=== PATIENT | female | born 2000 | race Caucasian/White ===

== ENCOUNTER 2020-09-20 18:29 | Emergency (ER) | payer BC, OTHER ==
[2020-09-20] MEDS ORDERED: Ondansetron 4 MG/2 ML SDV IVPUSH ONE (19:22)
--- NOTE | 2020-09-20 19:26 | EDM.PDOC ---
ED HPI GENERAL MEDICAL PROBLEM - General Chief Complaint: Genitourinary Problem Stated Complaint: POSS UTI Time Seen by Provider: 09/20/20 19:09 Source of Information: Reports: Patient, Family History Limitations: Reports: No Limitations - History of Present Illness INITIAL COMMENTS - FREE TEXT/NARRATIVE: This is a 20-year-old female. For the last several days she has been having back pain that she just thought was her regular back pain so she ignored it. Then over the last couple days she has developed cloudy foul-smelling urine having some chills and fatigue and today nausea and vomiting. She says she has a history of urinary tract infections and kidneys infections. When she had the urinary symptoms she just thought they would go away but they did not. She states she is been able to drink fluids despite the nausea and the vomiting. She does not know how high her fever has been but she has had chills. Back Pain Score (Numeric/FACES): 5 - Related Data Allergies Allergy/AdvReac Type Severity Reaction Status Date / Time No Known Allergies Allergy Verified 09/20/20 18:54 Home Meds: Home Meds . [No Known Home Meds] 09/20/20 [History] Past Medical History - Past Health History Medical/Surgical History: Denies Medical/Surgical History Social & Family History - Tobacco Use Tobacco Use Status *Q: Never Tobacco User Second Hand Smoke Exposure: No - Recreational Drug Use Recreational Drug Use: No ED ROS GENERAL - Review of Systems Review Of Systems: See Below Constitutional: Reports: Chills, Malaise. Denies: Fever HEENT: Reports: No Symptoms Respiratory: Denies: Shortness of Breath, Cough Cardiovascular: Reports: No Symptoms Endocrine: Reports: No Symptoms GI/Abdominal: Reports: Abdominal Pain, Nausea, Vomiting : Reports: Dysuria, Other (As per HPI). Denies: Discharge Musculoskeletal: Reports: Back Pain Skin: Reports: No Symptoms Neurological: Reports: No Symptoms Psychiatric: Reports: No Symptoms Hematologic/Lymphatic: Reports: No Symptoms ED EXAM, RENAL/ - Physical Exam Exam: See Below Exam Limited By: No Limitations General Appearance: Alert, WD/WN, No Apparent Distress Eye Exam: Bilateral Eye: Normal Inspection Ears: Normal External Exam Nose: Normal Inspection Throat/Mouth: Normal Lips, Normal Voice, No Airway Compromise Head: Normocephalic Neck: Supple Respiratory/Chest: No Respiratory Distress, Lungs Clear, Normal Breath Sounds Cardiovascular: Regular Rate, Rhythm, No Murmur GI/Abdominal: Soft, Other (Mildly tender left upper quadrant area on palpation, bowel sounds are quiet. There is no guarding there is no rebound.) Back Exam: Normal Inspection, Full Range of Motion, CVA Tenderness (L). No: CVA Tenderness (R) Extremities: Normal Inspection, Normal Range of Motion Neurological: Alert, Oriented Psychiatric: Normal Affect, Normal Mood Skin Exam: Warm, Dry Course - Vital Signs Last Recorded V/S: Last Vital Signs Temp 97 F 09/20/20 18:53 Pulse 118 H 09/20/20 18:53 Resp 16 09/20/20 18:53 BP 120/82 09/20/20 18:53 Pulse Ox 98 09/20/20 18:53 - Orders/Labs/Meds Orders: Active Orders 24 hr Category Date Time Status Sodium Chloride 0.9% [Normal Saline] 1,000 ml Med 09/20/20 19:30 Active IV ASDIRECTED Medication Orders Sodium Chloride (Normal Saline) 1,000 mls @ 1,000 mls/hr IV ASDIRECTED JENNIFER Last Admin: 09/20/20 19:46 Dose: 1,000 mls/hr Documented by: HANNAH Labs: Laboratory Tests 09/20/20 09/20/20 09/20/20 Range/Units 19:07 19:35 19:35 WBC 10.81 H (3.98-10.04) K/mm3 RBC 4.73 (3.98-5.22) M/mm3 Hgb 14.5 (11.2-15.7) gm/dl Hct 44.4 (34.1-44.9) % MCV 93.9 (79.4-94.8) fl MCH 30.7 (25.6-32.2) pg MCHC 32.7 (32.2-35.5) g/dl RDW Std Deviation 42.3 (36.4-46.3) fL Plt Count 191 (182-369) K/mm3 MPV 10.2 (9.4-12.3) fl Neut % (Auto) 87.6 H (34.0-71.1) % Lymph % (Auto) 4.4 L (19.3-51.7) % [place] % (Auto) 7.5 (4.7-12.5) % Eos % (Auto) 0.2 L (0.7-5.8) Baso % (Auto) 0.1 (0.1-1.2) % Neut # (Auto) 9.47 H (1.56-6.13) K/mm3 Lymph # (Auto) 0.48 L (1.18-3.74) K/mm3 [place] # (Auto) 0.81 H (0.24-0.36) K/mm3 Eos # (Auto) 0.02 L (0.04-0.36) K/mm3 Baso # (Auto) 0.01 (0.01-0.08) K/mm3 Manual Slide Review Abnormal smear Sodium 140 (136-145) mEq/L Potassium 3.8 (3.5-5.1) mEq/L Chloride 102 (98-107) mEq/L Carbon Dioxide 25 (21-32) mEq/L Anion Gap 16.8 H (5-15) BUN 16 (7-18) mg/dL Creatinine 0.8 (0.55-1.02) mg/dL Est Cr Clr Drug Dosing 77.03 mL/min Estimated GFR (MDRD) > 60 (>60) mL/min BUN/Creatinine Ratio 20.0 H (14-18) Glucose 87 (74-106) mg/dL Calcium 8.9 (8.5-10.1) mg/dL Total Bilirubin 1.0 (0.2-1.0) mg/dL AST 15 (15-37) U/L ALT 22 (14-59) U/L Alkaline Phosphatase 49 (46-116) U/L Total Protein 8.3 H (6.4-8.2) g/dl Albumin 4.1 (3.4-5.0) g/dl Globulin 4.2 gm/dL Albumin/Globulin Ratio 1.0 (1-2) HCG, Qual (NEGATIVE) Urine Color Yellow (Yellow) Urine Appearance Clear (Clear) Urine pH 5.0 (5.0-8.0) Ur Specific [place] > or = 1.030 (1.005-1.030) Urine Protein Trace H (Negative) Urine Glucose (UA) Negative (Negative) Urine Ketones 3+ H (Negative) Urine Occult Blood 2+ H (Negative) Urine Nitrite Negative (Negative) Urine Bilirubin 1+ H (Negative) Urine Urobilinogen 0.2 (0.2-1.0) Ur Leukocyte Esterase Negative (Negative) Urine RBC 0-5 (0-5) /hpf Urine WBC 0-5 (0-5) /hpf Ur Squamous Epith Cells 5-10 H (0-5) /hpf Urine Bacteria Few (FEW) /hpf Urine Mucus Many H (FEW) /hpf 09/20/20 Range/Units 19:35 WBC (3.98-10.04) K/mm3 RBC (3.98-5.22) M/mm3 Hgb (11.2-15.7) gm/dl Hct (34.1-44.9) % MCV (79.4-94.8) fl MCH (25.6-32.2) pg MCHC (32.2-35.5) g/dl RDW Std Deviation (36.4-46.3) fL Plt Count (182-369) K/mm3 MPV (9.4-12.3) fl Neut % (Auto) (34.0-71.1) % Lymph % (Auto) (19.3-51.7) % [place] % (Auto) (4.7-12.5) % Eos % (Auto) (0.7-5.8) Baso % (Auto) (0.1-1.2) % Neut # (Auto) (1.56-6.13) K/mm3 Lymph # (Auto) (1.18-3.74) K/mm3 [place] # (Auto) (0.24-0.36) K/mm3 Eos # (Auto) (0.04-0.36) K/mm3 Baso # (Auto) (0.01-0.08) K/mm3 Manual Slide Review Sodium (136-145) mEq/L Potassium (3.5-5.1) mEq/L Chloride (98-107) mEq/L Carbon Dioxide (21-32) mEq/L Anion Gap (5-15) BUN (7-18) mg/dL Creatinine (0.55-1.02) mg/dL Est Cr Clr Drug Dosing mL/min Estimated GFR (MDRD) (>60) mL/min BUN/Creatinine Ratio (14-18) Glucose (74-106) mg/dL Calcium (8.5-10.1) mg/dL Total Bilirubin (0.2-1.0) mg/dL AST (15-37) U/L ALT (14-59) U/L Alkaline Phosphatase (46-116) U/L Total Protein (6.4-8.2) g/dl Albumin (3.4-5.0) g/dl Globulin gm/dL Albumin/Globulin Ratio (1-2) HCG, Qual Negative (NEGATIVE) Urine Color (Yellow) Urine Appearance (Clear) Urine pH (5.0-8.0) Ur Specific [place] (1.005-1.030) Urine Protein (Negative) Urine Glucose (UA) (Negative) Urine Ketones (Negative) Urine Occult Blood (Negative) Urine Nitrite (Negative) Urine Bilirubin (Negative) Urine Urobilinogen (0.2-1.0) Ur Leukocyte Esterase (Negative) Urine RBC (0-5) /hpf Urine WBC (0-5) /hpf Ur Squamous Epith Cells (0-5) /hpf Urine Bacteria (FEW) /hpf Urine Mucus (FEW) /hpf Meds: Medications Generic Name Dose Route Start Last Admin Trade Name Freq PRN Reason Stop Dose Admin Sodium Chloride 1,000 mls @ 1,000 mls/hr 09/20/20 19:30 09/20/20 19:46 Normal Saline IV 1,000 mls/hr ASDIRECTED JENNIFER Administration Discontinued Medications Generic Name Dose Route Start Last Admin Trade Name Freq PRN Reason Stop Dose Admin Ondansetron HCl 4 mg 09/20/20 19:22 09/20/20 19:46 Ondansetron 4 Mg/2 Ml Sdv IVPUSH 09/20/20 19:23 4 mg ONETIME ONE Administration - Re-Assessments/Exams Free Text/Narrative Re-Assessment/Exam: 09/20/20 20:53 Spoke to the patient regarding her lab results her CBC appears to be normal with minimally elevated white count, her CMP is normal she is not . Urine is very concentrated but there is no nitrates there is no leukocyte esterase and there is few if any bacteria. She is 3+ ketones positive suggesting dehydration not eating enough. I spoke to her regarding her dehydration and that concentrated urine can cause burning and cloudiness and sometimes a foul smell to the urine but she does not really have what I consider be a urinary tract infection at this time. Encouraged her to drink and according to her weight she should be drinking at least 6 full 8 ounce glasses of water a day. Departure - Departure Time of Disposition: 20:55 Disposition: Home, Self-Care 01 Condition: Good Clinical Impression: Dehydration - Discharge Information *PRESCRIPTION DRUG MONITORING PROGRAM REVIEWED*: Not Applicable *COPY OF PRESCRIPTION DRUG MONITORING REPORT IN PATIENT SUKHJINDER: Not Applicable Instructions: Dehydration, Adult, [id number], Rehydration, Adult Referrals: PCP,None [Primary Care Provider] - Forms: ED Department Discharge Additional Instructions: Drink at least 6 full 8 ounce glasses of water a day, you need to hydrate yourself so your urine is not so thick, continue to monitor if you develop increasing symptoms especially with a documented fever recheck with your family doctor or return to the ER Sepsis Event Note (ED) - Evaluation Sepsis Screening Result: No Definite Risk - Focused Exam Vital Signs: Vital Signs Temp Pulse Resp BP Pulse Ox 09/20/20 18:53 97 F 118 H 16 120/82 98 - My Orders Last 24 Hours: My Active Orders 09/20/20 19:30 Sodium Chloride 0.9% [Normal Saline] 1,000 ml IV ASDIRECTED - Assessment/Plan Last 24 Hours: My Active Orders 09/20/20 19:30 Sodium Chloride 0.9% [Normal Saline] 1,000 ml IV ASDIRECTED
[2020-09-20] MEDS ORDERED: Sodium Chloride 0.9% 1,000 ML IV SCH (19:30)
== END 2020-09-20 21:10 | disposition home or self-care (01) ==
LOC: JD.ED 18:29
DX: E86.0 Dehydration (principal)
CPT/HCPCS: 36415; 80053; 81001; 84703; 85025; 96374; 99284; J2405; J7030; 99283

== ENCOUNTER 2022-06-11 08:09 | Inpatient (IN) | payer SELFPAY ==
[2022-06-11] MEDS ORDERED: Nalbuphine HCl 10 MG/ 1ML Amp IVPUSH PRN (11:47)
[2022-06-11] MEDS ORDERED: Oxytocin/Lactated Ringers 10 UNIT/1,000 ML BAG IV SCH ×2 (12:00)
[2022-06-11] MEDS ORDERED: Lactated Ringers 1,000 ML ONE (12:04)
[2022-06-11] MEDS: Lactated Ringers 1,000 ML IV SCH ×4 (12:11→22:54)
[2022-06-11] MEDS ORDERED: Ampicillin 2 GM in Sodium Chloride 0.9% 100 ML IV ONE (12:30)
[2022-06-11] MEDS ORDERED: ePHEDrine 50 MG/ML SDV IVPUSH PRN (14:17)
[2022-06-11] MEDS ORDERED: diphenhydrAMINE 50 MG/ML SDV IVPUSH PRN (14:17)
[2022-06-11] MEDS ORDERED: fentaNYL 100 MCG/2 ML SDV EPIDUR PRN (14:17)
[2022-06-11] MEDS: Bupivacaine/fentaNYL/NS 100 ML Bag EPIDUR PRN (14:41)
[2022-06-11] MEDS ORDERED: Dexmedetomidine 200 MCG/2 ML SDV ONE (15:02)
[2022-06-11] MEDS: Ampicillin 1 GM in Sodium Chloride 0.9% 100 ML IV SCH ×2 (16:32→21:25)
[2022-06-11] MEDS: Ondansetron 4 MG/2 ML SDV IVPUSH PRN (21:23)
[2022-06-12] MEDS ORDERED: Phenylephrine HCl In 0.9% NaCl 1 MG/10 ML Vial ONE
[2022-06-12] MEDS ORDERED: Lidocaine 1% 10 ML MDV ONE
[2022-06-12] MEDS: Bupivacaine/fentaNYL/NS 100 ML Bag EPIDUR PRN (00:28)
[2022-06-12] MEDS: Ampicillin 1 GM in Sodium Chloride 0.9% 100 ML IV SCH ×2 (01:47→09:51)
[2022-06-12] MEDS: Ondansetron 4 MG/2 ML SDV IVPUSH PRN (03:26)
[2022-06-12] MEDS ORDERED: Acetaminophen 325 MG Tab PO PRN (04:50)
[2022-06-12] MEDS ORDERED: Benzocaine/Menthol 20%-0.5% Spray 78 GM Cannister TOP PRN (04:50)
[2022-06-12] MEDS ORDERED: Docusate Sodium 100 MG Cap PO PRN (04:50)
[2022-06-12] MEDS ORDERED: Witch Hazel Medicated Pads 40/Jar TOP PRN (04:50)
[2022-06-12] MEDS: Prenatal Multivitamin with Calcium/Folic Acid/Iron Tab PO SCH (08:08)
[2022-06-12] MEDS: Ibuprofen 600 MG Tab PO PRN ×2 (08:08→20:26)
[2022-06-13] MEDS: Prenatal Multivitamin with Calcium/Folic Acid/Iron Tab PO SCH (08:28)
[2022-06-13] MEDS: Ibuprofen 600 MG Tab PO PRN (20:04)
== END 2022-06-13 21:10 | disposition home or self-care (01) | DRG 807 ==
LOC: JD.OBCHECK 08:09 → JD.OB 08:14 → JD.OBCHECK 15:33 → JD.OB 15:33 → OBSVTOIN 06-12 04:26 → JD.MS 06-12 04:27 → JD.OB 06-12 12:15
PROVIDERS: ADMIT Obstetrics & Gynecology; ATTEND Obstetrics & Gynecology
PROC: 10E0XZZ Delivery of Products of Conception, External Approach (ICD-10-PCS; principal; 2022-06-12)
PROC: 10907ZC Drainage of Amniotic Fluid, Therapeutic from Products of Conception, Via Natural or Artificial Opening (ICD-10-PCS; 2022-06-12)
PROC: 3E0R3BZ Introduction of Anesthetic Agent into Spinal Canal, Percutaneous Approach (ICD-10-PCS; 2022-06-12)
PROC: 00HU33Z Insertion of Infusion Device into Spinal Canal, Percutaneous Approach (ICD-10-PCS; 2022-06-12)
DX: O98.32 Other infections with a predominantly sexual mode of transmission complicating childbirth (principal); Z37.0 Single live birth; A60.09 Herpesviral infection of other urogenital tract; Z3A.39 39 weeks gestation of pregnancy
CPT/HCPCS: 36415; 51702; 59025; 59409; 80306; 84112; 85025; 86592; 86850; 86900; 86901; 87653; A9270-GY; J0290; J2405; J2590; J3010; J7120

== ENCOUNTER 2023-06-26 03:53 | Inpatient (IN) | payer SELFPAY ==
[~2023-06-26 03:53] MED LIST: Bupivacaine 0.25% 10 ML SDV ONE; Lidocaine 1% 10 ML MDV ONE
[2023-06-26] MEDS ORDERED: Nalbuphine HCl 10 MG/ 1ML Amp IVPUSH PRN (04:37)
[2023-06-26] MEDS ORDERED: Sodium Chloride 0.9% 10 ML Syringe FLUSH PRN (04:37)
[2023-06-26] MEDS ORDERED: Ampicillin 2 GM in Sodium Chloride 0.9% 100 ML IV ONE (04:37)
[2023-06-26] MEDS ORDERED: Lidocaine 1% 50 ML MDV INJECT PRN (04:37)
[2023-06-26] MEDS ORDERED: Oxytocin/Lactated Ringers 30 UNIT/500 ML BAG IV SCH (04:45)
[2023-06-26] MEDS: Lactated Ringers 1,000 ML IV SCH ×4 (04:50→09:35)
[2023-06-26 04:58] LABS: BASOPHILS ABSOLUTE AUTO 0.1 K/mm3 (0.0-0.2); BASOPHILS PERCENT AUTO 0.3 % (0.0-1.0); EOSINOPHILS ABSOLUTE AUTO 0.1 K/mm3 (0.0-0.4); EOSINOPHILS PERCENT AUTO 0.5 % (0.0-6.0); HEMATOCRIT 29.7 % (37.0-47.0); HEMOGLOBIN 9.5 gm/dl (12.0-16.0); IMMATURE GRAN ABSOLUTE AUTO 0.11 K/mm3 (0.00-0.05); IMMATURE GRAN PERCENT AUTO 0.7 % (0.0-0.4); LYMPHOCYTES ABSOLUTE AUTO 3.1 K/mm3 (1.0-4.8); LYMPHOCYTES PERCENT AUTO 20.3 % (24.0-44.0); MEAN CORPUSCULAR HEMOGLOBIN 24.8 pg (28.0-32.0); MEAN CORPUSCULAR VOLUME 77.5 fl (83.0-99.0); MEAN PLATELET VOLUME 10.3 fl (9.4-12.3); MONOCYTES ABSOLUTE AUTO 0.8 K/mm3 (0.0-0.8); MONOCYTES PERCENT AUTO 4.9 % (0.0-8.0); NEUTROPHILS ABSOLUTE AUTO 11.1 K/mm3 (1.8-7.7); NEUTROPHILS PERCENT AUTO 73.3 % (41.0-71.0); PLATELET COUNT,PLT 213 K/mm3 (150-400); RED BLOOD CELL COUNT 3.83 M/mm3 (4.10-5.30); WHITE BLOOD CELL COUNT,WBC 15.16 K/mm3 (3.9-11.3)
[2023-06-26] MEDS ORDERED: fentaNYL 100 MCG/2 ML SDV EPIDUR PRN ×2 (04:59→05:27)
[2023-06-26] MEDS ORDERED: Bupivacaine/fentaNYL/NS 100 ML Bag EPIDUR PRN ×2 (04:59→05:27)
[2023-06-26] MEDS ORDERED: ePHEDrine 50 MG/ML SDV IVPUSH PRN ×2 (04:59→05:27)
[2023-06-26] MEDS ORDERED: diphenhydrAMINE 50 MG/ML SDV IVPUSH PRN ×2 (04:59→05:27)
[2023-06-26] MEDS ORDERED: fentaNYL 100 MCG/2 ML SDV ONE (05:31)
[2023-06-26 05:47] LABS: HEPATITIS C AB NEGATIVE (NEGATIVE); HIV RAPID SCREEN RLFX COMFIRM NEGATIVE (NEGATIVE)
[2023-06-26] MEDS ORDERED: Phenylephrine 1% 10 MG/ML SDV IV PRN (06:27)
[2023-06-26] MEDS: Ondansetron 4 MG/2 ML SDV IVPUSH PRN ×2 (06:45→10:51)
[2023-06-26 07:47] LABS: BARBITURATE SCREEN,URINE NEGATIVE (CUTOFF=200); BENZODIAZEPINES SCREEN,URINE NEGATIVE (CUTOFF=150); BUPRENORPHINE SCREEN,URINE NEGATIVE (CUTOFF=10); METHADONE SCREEN, URINE NEGATIVE (CUTOFF=200); METHAMPHETAMINES SCREEN, URINE NEGATIVE (CUTOFF=500); OXYCODONE SCREEN,URINE NEGATIVE (CUT0FF=100); THC SCREEN,URINE 20 NG/ML NEGATIVE (CUTOFF=50)
[2023-06-26 07:57] LABS: AMPHETAMINES SCREEN, URINE NEGATIVE (CUTOFF=500)
[2023-06-26] MEDS: Ampicillin 1 GM in Sodium Chloride 0.9% 100 ML IV SCH ×2 (08:45→13:24)
[2023-06-26] MEDS ORDERED: Sodium Chloride 0.9% 10 ML Syringe FLUSH SCH (09:00)
[2023-06-26] MEDS ORDERED: Benzocaine/Menthol 20%-0.5% Spray 78 GM Cannister TOP PRN (13:05)
[2023-06-26] MEDS ORDERED: Witch Hazel Medicated Pads 40/Jar TOP PRN (13:05)
[2023-06-26] MEDS ORDERED: Docusate Sodium 100 MG Cap PO PRN (13:05)
[2023-06-26] MEDS ORDERED: Magnesium Hydroxide 400 MG/5 ML Susp 30 ML Cup PO PRN (13:05)
[2023-06-26] MEDS ORDERED: Hydrocortisone Acetate 25 MG Supp RECTAL PRN (13:05)
[2023-06-26] MEDS: Ibuprofen 600 MG Tab PO PRN (14:08)
[2023-06-26] MEDS: Acetaminophen 325 MG Tab PO PRN (21:41)
[2023-06-27] MEDS: Ibuprofen 600 MG Tab PO PRN ×2 (05:24→21:51)
[2023-06-27 07:50] LABS: GROUP B STREP BY PCR NEGATIVE (NEGATIVE)
[2023-06-27] MEDS: Prenatal Multivitamin with Calcium/Folic Acid/Iron Tab PO SCH (09:11)
[2023-06-27] MEDS: Ferrous Sulfate 324 MG Tab.EC PO SCH (09:11)
[2023-06-27 12:46] LABS: HEPATITIS B SURFACE AG NONREACTIVE (NONREACTIVE)
[2023-06-28] MEDS ORDERED: Measles, Mumps & Rubella Vaccine 0.5 ML SDV SUBCUT ONE (07:44)
[2023-06-28] MEDS: Acetaminophen 325 MG Tab PO PRN (09:30)
[2023-06-28] MEDS: Prenatal Multivitamin with Calcium/Folic Acid/Iron Tab PO SCH (09:31)
[2023-06-28] MEDS: Ferrous Sulfate 324 MG Tab.EC PO SCH (09:31)
== END 2023-06-28 11:45 | disposition home or self-care (01) | DRG 807 ==
LOC: JD.OBCHECK 03:53 → JD.OB 03:59 → JD.OBCHECK 04:36 → JD.OB 04:37 → OBSVTOIN 11:30 → JD.OB 11:31
PROVIDERS: ADMIT Obstetrics & Gynecology; ATTEND Obstetrics & Gynecology
PROC: 10E0XZZ Delivery of Products of Conception, External Approach (ICD-10-PCS; principal; 2023-06-26)
PROC: 0KQM0ZZ Repair Perineum Muscle, Open Approach (ICD-10-PCS; 2023-06-26)
PROC: 3E0R3BZ Introduction of Anesthetic Agent into Spinal Canal, Percutaneous Approach (ICD-10-PCS; 2023-06-26)
PROC: 00HU33Z Insertion of Infusion Device into Spinal Canal, Percutaneous Approach (ICD-10-PCS; 2023-06-26)
PROC: 10907ZC Drainage of Amniotic Fluid, Therapeutic from Products of Conception, Via Natural or Artificial Opening (ICD-10-PCS; 2023-06-26)
DX: O98.52 Other viral diseases complicating childbirth (principal); Z37.0 Single live birth; B00.9 Herpesviral infection, unspecified; O48.0 Post-term pregnancy; O77.0 Labor and delivery complicated by meconium in amniotic fluid; O70.1 Second degree perineal laceration during delivery; Z3A.40 40 weeks gestation of pregnancy
CPT/HCPCS: 01967; 36415; 51702; 59025; 59409; 80306; 85025; 86592; 86762; 86803; 86850; 86900; 86901; 87340; 87653; A9270-GY; G0433; J0290; J2405; J3010; J3490; J7120; J7999